=== PATIENT | male | born 1970 | race Caucasian/White ===

== ENCOUNTER 2021-12-07 09:47 | Outpatient (REF) | payer OTHER, SELFPAY ==
[2021-12-07 10:56] LABS: Anion Gap 12 (12-20); Blood Urea Nitrogen 17 mg/dL (9-16); Calcium 9.4 mg/dL (8.4-10.2); Carbon Dioxide 27 mmol/L (22-29); Chloride 104 mmol/L (96-108); Estimated Glomerular Filt Rate > 60; Glucose Random 112 mg/dL (60-115); Potassium 4.5 mmol/L (3.3-5.1); Sodium 138 mmol/L (135-145)
[2021-12-07 11:11] LABS: Erythrocyte Sedimentation Rate 2 MM/HR (0-15)
[2021-12-09 02:25] LABS: Lyme Abs Screen <0.90 index
[2021-12-09 14:31] LABS: Anti Nuclear Antibody Screen NEGATIVE (NEGATIVE)
[2021-12-13 03:56] LABS: Aldolase 9.7 U/L (<=8.1)
== END 2021-12-07 09:48 | disposition home or self-care (01) ==
LOC: HO.LAB 09:47
PROVIDERS: PCP Internal Medicine; Visit Provider Psychiatry & Neurology Neurology
DX: G71.02 Facioscapulohumeral muscular dystrophy (principal)
CPT/HCPCS: 36415; 80048; 82085; 82550; 84443; 85652; 86038; 86039; 86617; 86618

== ENCOUNTER 2022-04-11 10:43 | Outpatient (REF) | payer OTHER, SELFPAY ==
[2022-04-11 10:52] VITALS: BP 157/83; PULSE 104; RESP 16; TEMP 37.3; O2SAT 98; BMI 18.8
[2022-04-11 11:35] VITALS: BP 139/85; PULSE 81; RESP 16; O2SAT 98
--- NOTE | 2022-04-11 11:41 | P.OP_ITS ---
Operative Note Operative Note Date of Service: 04/11/22 Narrative: Preoperative diagnosis: Polymyositis Postoperative diagnosis: Polymyositis Procedure: Right deltoid muscle biopsy Surgeon: Jose Bolden MD Vest Front Presser: No physician Anesthesia: Local lidocaine 1% with epinephrine Indications for procedure: 52-year-old male patient with generalized muscle weakness and a presumed diagnosis of polymyositis presenting today for muscle biopsy right deltoid Operative findings: Normal appearing right deltoid muscle Specimen: Right deltoid muscle biopsy x2 Estimated blood loss: 5 mL Complications: None Procedure details: Patient was brought to the minor surgery suite and placed in a supine position. The site of surgery confirmed by the patient in the right deltoid muscle. After assuring informed consent the skin was prepped with Betadine and draped in a sterile fashion. A longitudinal incision measuring approximately 4 cm in length was created with a 15 blade. This carried out through subcutaneous tissue and down to the muscle fascia. This was then inc ised with a scalpel. Two 12 mm muscle specimens were then obtained and secured in a muscle biopsy clamp. These were placed in saline wrapped gauze and sent immediately to pathology for further examination. After assuring hemostasis, the muscle fascia was reapproximated using interrupted 3-0 Polysorb sutures. Dermis was reapproximated using interrupted 3-0 Polysorb sutures. Skin was closed using a running subcuticular 4-0 Polysorb suture. Steri-Strips, 2 x 2 gauze and Tegaderm were then applied. The patient tolerated the procedure well. He was discharged to home in stable condition.
== END 2022-04-11 10:44 | disposition home or self-care (01) ==
LOC: HO.MS 10:43
PROVIDERS: PCP Internal Medicine; Visit Provider Surgery
PROC: (CPT 20205; principal; 2022-04-11 11:00)
DX: M33.20 Polymyositis, organ involvement unspecified (principal)
CPT/HCPCS: 20205; 88300; 88305; 88313; 88319; 88348